=== PATIENT | female | born 1960 | race Caucasian/White ===

== ENCOUNTER → 2023-10-21 08:25 | Outpatient (REF) | payer OTHER, SELFPAY | LOC: HWRAD 08:25 | PROVIDERS: ATTENDING PHYSICIAN Nurse Practitioner Family | DX: M85.80 Other specified disorders of bone density and structure, unspecified site (principal) | CPT/HCPCS: 77080 ==

== ENCOUNTER 2024-07-09 08:30 | Emergency (ER) | payer MEDICARE, OTHER, SELFPAY ==
[2024-07-09 08:32] VITALS: BP 166/87
[2024-07-09 09:01] VITALS: BMI 28.4
--- NOTE | 2024-07-09 09:25 | ED.GENMED ---
History of Present Illness
General
Chief Complaint: Abdominal Pain
Source: patient
Exam Limitations: none
Time Seen by Provider: 07/09/24 08:36
Nursing documentation reviewed up to this point in time: agreed with
History of Present Illness
History of Present Illness:
64 yr old female presents to the ED for evaluation. Patient reports she started with diarrhea all throughout the night last night and this morning had several episodes of blood /mucus and clots per rectum. She also has lower abdominal pain. In
addition she reports she passed out in middle the night. She remembers walking to the bathroom bending over to get the trash can and woke up on the floor.
She called for her , with diarrhea. He heard her talking to her and she was on the floor. Patient denies any headache. She denies any nausea vomiting since. She does complain of lower abdominal cramping.
No prior rectal bleeding/, no history of diverticulitis colitis in the past.
She has done Cologuard in the past which was negative but has not done colonoscopy.
Review of Systems
Review of Systems
Allergies reviewed?: Yes
All Other Systems: ROS reviewed and negative except as documented in HPI and ROS
Constitutional: Reports no symptoms; Denies fatigue
Respiratory: Reports no symptoms
Cardiac: Reports syncope (Patient had a syncopal episode in the middle the night)
ABD/GI: Reports abdominal pain, diarrhea and other ( no stool in rectum )
Musculoskeletal: Reports no symptoms
Skin: Reports no symptoms
Neurological: Reports no symptoms
Psychiatric: Reports no symptoms
Phy Exam
General Physical Exam
General Presentation: no apparent distress
General age: appears stated age
General Skin: warm and dry
General Habitus: normal
General Mental: alert
Eye Exam
Eye Exam: PERRL
Gastrointestinal Exam
Gastrointestinal Exam: non tender, soft and other ( no stool in rectum )
Neurological Exam
Neurological Exam: alert and oriented x3
Musculoskeletal Exam
Musculoskeletal Exam: full ROM
Skin Exam
Skin Exam: normal color and warm/dry
Psychiatric Exam
Psychiatric Exam: normal mood/affect
Course
Orders/Labs/Results
Orders:
Orders
07/09/24 09:21
IV Insert/Care/Rem.- Treatment PRN
0.9% Sodium Chloride 1000 ml [Nss] 1,000 ml IV BOLUS
Iohexol [Omnipaque] See Protocol PO NOW STA
07/09/24 09:22
CT Abd/pel W Iv And Oral Contr Urgent
Comment:
Reason For Exam: lower abd pain with blood stool
07/09/24 09:27
Electrocardiogram (*1) Stat
Reason for Study: Other
Other Reason for Exam: chest pain
Cardiac Monitoring- Treatment ONCE
EKG- Treatment ONCE
07/09/24 09:38
Complete Blood Count/With Diff Urgent
Comprehensive Metabolic Panel Urgent
Lipase Urgent
07/09/24 10:01
Urinalysis Reflex To Culture Urgent
Date Specimen was Collected: 07/09/24
Time Specimen was Collected: 09:59
07/09/24 11:44
STOOL [C difficile Antigen & Toxins] Urgent
PRANAV Source: Feces/Stool
Specimen Description:
Date Specimen was Collected: 07/09/24
Time Specimen was Collected: 11:42
Stool Culture Urgent
PRANAV Source: Feces/Stool
Specimen Description:
Date Specimen was Collected: 07/09/24
Time Specimen was Collected: 11:42
07/09/24 14:10
Dicyclomine HCl [Bentyl] 20 mg IM NOW STA
07/09/24 14:17
Vital Signs- Treatment ONCE
Frequency: Once
Abnormal Lab Results
07/09/24
09:38
RDW 11.3 L %
(11.5-14.5)
MPV 10.5 H fL
(7.4-10.4)
Abs Immat Gran (auto) 0.1 H 10^3/uL
(0-0.05)
Absolute Neuts (auto) 8.8 H 10^3/uL
(1.4-6.5)
Absolute Lymphs (auto) 0.9 L 10^3/uL
(1.2-3.4)
Absolute Monos (auto) 0.7 H 10^3/uL
(0.1-0.6)
Neutrophils % 84.5 H %
(42.2-75.2)
Lymphocytes % 8.3 L %
(20.5-51.1)
Creatinine 0.5 L mg/dL
(0.6-1.0)
Glucose 140 H mg/dl
(70-99)
07/09/24 09:38
07/09/24 09:38
Vital Signs
Initial and Last Documented VS:
Initial Vital Signs
Temp Pulse Resp BP Pulse Ox
98.1 F 113 18 166/87 98
07/09/24 08:32 07/09/24 08:32 07/09/24 08:32 07/09/24 08:32 07/09/24 08:32
Last Documented Vital Signs
Temp Pulse Resp BP Pulse Ox
98.1 F 113 18 134/57 94
07/09/24 08:32 07/09/24 08:32 07/09/24 08:32 07/09/24 13:00 07/09/24 13:45
Pantograph Setter consulted with Physician
Pantograph Setter consulted with physician?: Yes
Name of Physician Consulted: Deangelo
MDM/Problems Addressed
MDM/Problems Addressed:
Patient is a 64-year-old female with past medical history of hypertension, hyperlipidemia presents to the ER for evaluation. Patient had diarrhea throughout the night and this morning had mucousy blood clots per rectum. She did have lower
abdominal cramping. Patient did have a syncope episode in the middle of the night heard her talking patient realizes she woke up on the floor however no complaints of headache. Patient has no obvious tender on exam and has a normal
neurological exam. Normal EKG
CAT scan does show colitis. Patient was able to give a stool specimen here which was negative for C. difficile. She denies any recent antibiotics she denies any fevers her white count is normal. Episodes of mucousy blood per rectum are slowing
down here she is nontoxic but does complain of abdominal cramps. She was given 1 dose of IM Bentyl here in the ER will DC with with a prescription for Bentyl. pt afebrile no GI history. Discussed ED physician will hold off on antibiotics.
However discussed close outpatient follow up and recommend outpatient colonoscopy after symptoms are resolved.
*Radiology
Radiology exam reviewed: radiology read reviewed (Long segment wall thickening with mild surrounding stranding along the distal transverse colon extending to the mid descending colon which likely represents colitis)
*Pulse Oximetry
Patient hypoxic: no
*EKG
Interpreted by ED Provider?: Yes
Interpretation: normal
Comparison EKG: no comparison EKG present
Heart Rate: 68
Rate: normal
Rhythm: sinus
Ischemia: no ischemia
*Critical Care Note
Total Time (30-74mins, 75-104mins- exclusive of procedures): Not Applicable
ED Attending Note
-
Portions of this chart may have been created with voice recognition software.� Occasional wrong word or��sound alike� substitutions may have occurred due to the inherent limitations of voice recognition software.
Discharge Plan
Departure
Patient Disposition: Home (Routine Discharge)
Date of Disposition: 07/09/24
Time of Disposition: 14:12
Patient with high blood pressure during this ER visit?: No
Condition: Fair
Covid-19: Not Applicable
Discharge Problem:
Colitis, Syncope
Instructions: Syncope (Fainting) (DC), Colitis (DC)
Prescriptions:
New
dicyclomine 20 mg tablet
20 mg PO QID PRN (Reason: abdominal cramping) Qty: 10 0RF
Referrals:
Jacques Eng CRNP [Family Provider] -
Christin uHber DO [Active] -
Activity Restrictions/Additional Instructions:
As discussed bland diet for the next 24 hours.
Stay well hydrated.
A prescription for Bentyl for antispasmodic cramping was sent to the pharmacy take only as directed. Follow-up with a family doctor in the next several days however it is recommended that you follow-up with GI once symptoms are resolved for
repeat evaluation and colonoscopy. Return if any worsening of symptoms if worsening diarrhea blood per rectum cramps fever chills.
Interventions
Interventions:
*Risk Screen - Suicide Last Done: 07/09/24 08:32
*General Assessment Last Done: 07/09/24 08:32
*Neglect/Abuse Screening Last Done: 07/09/24 08:32
ED- Fall Risk Assessment Last Done: 07/09/24 09:01
UZ-Rxeoeg-Ikigholfbc Assessment Last Done: 07/09/24 09:01
Discharge Date and Time
Print Language: ARMENIAN
[2024-07-09 09:51] LABS: % Basophils 0.1 % (0-2); % Eosinophils 0.1 % (0-6); % Immature Granulocytes 0.5 % (0-0.5); % Lymphocytes 8.3 % (20.5-51.1); % Monocytes 6.5 % (1.7-9.3); % Neutrophils 84.5 % (42.2-75.2); Absolute Immature Granulocytes 0.1 10^3/uL (0-0.05); Absolute Lymphocytes 0.9 10^3/uL (1.2-3.4); Absolute Monocytes 0.7 10^3/uL (0.1-0.6); Absolute Neutrophils 8.8 10^3/uL (1.4-6.5); Hematocrit 39.6 % (37.0-47.0); Hemoglobin 14.2 g/dL (12.0-16.0); Mean Corp Hgb Conc. 35.9 g/dL (33.0-37.0); Mean Corpuscular Hgb 30.8 pg (27.0-31.0); Mean Corpuscular Volume 85.9 fL (81.0-99.0); Mean Platelet Volume 10.5 fL (7.4-10.4); Nucleated Red Blood Cells % 0 %; Platelet Count 221 10^3/uL (130-400); Red Blood Cell Count 4.61 10^6/uL (4.20-5.40); Red Cell Dist. Width 11.3 % (11.5-14.5); White Blood Cell Count 10.4 10^3/uL (4.8-10.8)
[2024-07-09] MEDS: OMNIPAQUE 50 ML PO (09:51)
[2024-07-09] MEDS: NSS 1000 IV (09:55)
[2024-07-09 10:08] LABS: ALT (SGPT) 23 U/L (0-35); AST (SGOT) 24 U/L (14-36); Albumin 4.7 g/dl (3.5-5.0); Alkaline Phosphatase 73 U/L (38-126); Blood Urea Nitrogen 14 mg/dl (7-17); Carbon Dioxide 26 mmol/L (22-30); Chloride 99 mmol/L (98-107); Estimated Creatinine Clearance 81 ml/min; Glucose 140 mg/dl (70-99); Potassium 3.8 mmol/L (3.5-5.1); Sodium 139 mmol/L (135-145); Total Bilirubin 0.6 mg/dl (0.2-1.3); Total Protein 7.4 g/dl (6.3-8.2); eGFR > 60.00
[2024-07-09 10:17] LABS: Lipase 65 U/L (23-300)
[2024-07-09 10:23] LABS: Urine Albumin Negative (Neg - Trace); Urine Bilirubin Negative (Negative); Urine Character Clear (Clear); Urine Color Yellow; Urine Glucose Negative (Negative); Urine Ketone Negative (Negative); Urine Leukocyte Negative (Negative); Urine Nitrite Negative (Negative); Urine Occult Blood Negative (Negative); Urine Urobilinogen Negative (Neg - 1+)
[2024-07-09 12:07] VITALS: BP 139/67
[2024-07-09 13:00] VITALS: BP 134/57
[2024-07-09 14:00] VITALS: BP 137/63
[2024-07-09] MEDS: BENTYL 20 MG IM (14:36)
== END 2024-07-09 14:40 | disposition home or self-care (01) ==
LOC: EMR 08:30
PROVIDERS: Nurse Practitioner; EMERGENCY PHYSICIAN Emergency Medicine; FAMILY PHYSICIAN Nurse Practitioner Family
DX: R55 Syncope and collapse (principal); K52.9 Noninfective gastroenteritis and colitis, unspecified; I10 Essential (primary) hypertension; E78.5 Hyperlipidemia, unspecified; Z88.5 Allergy status to narcotic agent; Z88.8 Allergy status to other drugs, medicaments and biological substances
CPT/HCPCS: 99285; 96372; 96360; 74177; 80053; 81003; 83690; 85025; 87045; 87046; 87324; 87427; 87449; 93005; Q9967

== ENCOUNTER 2024-08-17 06:19 | Day surgery (SDC) | payer MEDICARE, OTHER, SELFPAY | END 2024-08-17 16:32 | disposition home or self-care (01) | LOC: GI 06:19 | PROVIDERS: ATTENDING PHYSICIAN Internal Medicine; FAMILY PHYSICIAN Nurse Practitioner Family | DX: K92.1 Melena (principal); K57.30 Diverticulosis of large intestine without perforation or abscess without bleeding | CPT/HCPCS: 45380; 88305 ==

== ENCOUNTER → 2025-05-29 13:20 | Outpatient (REF) | payer OTHER, SELFPAY | LOC: HWWDC 13:20 | PROVIDERS: ATTENDING PHYSICIAN Nurse Practitioner Family | DX: Z12.31 Encounter for screening mammogram for malignant neoplasm of breast (principal) | CPT/HCPCS: 77063; 77067 ==